=== PATIENT | female | born 1990 | race Caucasian/White ===

== ENCOUNTER 2018-02-16 08:55 | Emergency (ER) | payer BC, MEDICAID ==
[~2018-02-16] VITALS: Ht 172.7 cm; Wt 125.0 kg
[2018-02-16 08:57] VITALS: BP 129/82; Ht 172.7 cm; Wt 125.0 kg
[2018-02-16] MEDS ORDERED: PRINIVIL20 MG PO (09:00)
[2018-02-16] MEDS ORDERED: TORADOL10 MG PO (09:17)
[2018-02-16] MEDS ORDERED: CYCLOBENZAPRINE10 MG PO (09:17)
== END 2018-02-16 09:24 | disposition home or self-care (01) ==
LOC: D.ER 08:55
DX: S46.811A Strain of other muscles, fascia and tendons at shoulder and upper arm level, right arm, initial encounter (principal); X58.XXXA Exposure to other specified factors, initial encounter; Y93.89 Activity, other specified; Y92.019 Unspecified place in single-family (private) house as the place of occurrence of the external cause; I10 Essential (primary) hypertension; F17.200 Nicotine dependence, unspecified, uncomplicated

== ENCOUNTER 2018-06-16 16:18 | Emergency (ER) | payer BC, MEDICAID ==
[~2018-06-16] VITALS: Ht 172.7 cm; Wt 120.5 kg
[~2018-06-16 16:18] MED LIST: CYCLOBENZAPRINE10 MG PO; PRINIVIL20 MG PO; TORADOL10 MG PO
[2018-06-16 16:20] VITALS: Ht 172.7 cm; Wt 120.5 kg
[2018-06-16 16:41] LABS: APPEARANCE CLEAR (CLEAR); BILIRUBIN NEGATIVE (NEGATIVE); COLOR STRAW (YELLOW); GLUCOSE NEGATIVE (NEGATIVE); KETONE NEGATIVE (NEGATIVE); NITRITE NEGATIVE (NEGATIVE); PROTEIN NEGATIVE (NEGATIVE); SPECIFIC GRAVITY 1.005 (1.005-1.020); UROBILINOGEN NORMAL (NORMAL)
[2018-06-16 17:57] LABS: BASOPHILS 0.2 % (0-2); EOSINOPHILS 2.7 % (0-7); HEMATOCRIT 42.1 % (36.0-48.0); HEMOGLOBIN 13.2 g/dL (12-16); IMMATURE GRANULOCYTES 0.3 % (0-5); LYMPHOCYTES 24.9 % (15-50); MCH 27.6 pg (26.0-34.0); MCHC 31.4 g/dL (31.0-37.0); MCV 87.9 fL (80.0-100.0); MONOCYTES 7.2 % (2-11); NEUTROPHILS 64.7 % (40-80); PLATELET COUNT 426 10x3/uL (130-400); RBC 4.79 10x6/uL (4.00-5.40); RDW 13.8 % (11.5-14.5); WBC 13.9 10x3/uL (4.8-10.8)
[2018-06-16 17:57] LABS: HCG URINE NEGATIVE (NEGATIVE)
[2018-06-16 18:19] LABS: ALBUMIN 3.5 g/dL (3.4-5.0); ALKALINE PHOSPHATASE 72 U/L (46-116); ALT (SGPT) 34 U/L (10-68); BILIRUBIN - TOTAL 0.53 mg/dL (0.2-1.3); CALC OSMOLALITY 276 mosm/kg (275-300); CALCIUM 8.3 mg/dL (8.5-10.1); CARBON DIOXIDE 27.5 mmol/L (21.0-32.0); CHLORIDE - SERUM 103 mmol/L (98-107); CREATININE - SERUM 0.7 mg/dL (0.6-1.3); GLUCOSE 101 mg/dL (74-106); POTASSIUM - SERUM 3.7 mmol/L (3.5-5.1); PROTEIN - SERUM 7.5 g/dL (6.4-8.2); SODIUM 138 mmol/L (136-145); UREA NITROGEN 15 mg/dL (7-18); eGFR NON AFRICAN AMERICAN > 90 mL/min (90-120)
[2018-06-16 18:35] LABS: CKMB 1.1 U/L (0.0-3.6); CREATINE KINASE 83 UL (21-215); TROPONIN-I < 0.017 ng/mL (0.000-0.060)
[2018-06-16] MEDS ORDERED: VIBRAMYCIN 100100 MG PO (20:09)
[2018-06-16] MEDS ORDERED: TORADOL10 MG PO (20:09)
[2018-06-16] MEDS ORDERED: PREDNISONE20 MG PO (20:09)
[2018-06-16 20:35] VITALS: BP 135/75
== END 2018-06-16 20:35 | disposition home or self-care (01) ==
LOC: D.ER 16:18
PROVIDERS: Family Medicine
DX: R07.81 Pleurodynia (principal)